=== PATIENT | female | born 1985 | race Caucasian/White ===

== ENCOUNTER 2016-09-27 17:08 | Emergency (ER) | payer OTHER ==
[~2016-09-27 17:08] MED LIST: ALBUTEROL0.09 MG/A2 IH; AMOXIL500 MG PO; ANAPROX DS550 MG PO; ANTIVERT25 MG PO; ATIVAN1 MG PO; AUGMENTIN 875 M1 TAB PO; BACTRIM DS 8001 TA1 PO; CATAFLAM50 MG PO; CIPRO500 MG PO; CIPRODEX 0.3%-7.5 ML OT; CIPROFLOXACIN500 MG PO; CLARITIN10 MG PO; COMBIVENT1 ARO IH; DICLOFENAC POTA50 MG PO; FIORICET 325 MG1 TAB PO; FLAGYL500 MG PO; FLONASE ALLERG9.9 ML NAS; FLUCONAZOLE100 MG PO; HYDROCODONE BIT1 T11 PO; KEFLEX500 MG PO; MEDROL DOSEPAK4 MG PO; METFORMIN1000 MG PO; MOTRIN800 MG PO; Motrin,Rufen800 MG PO; NEURONTIN300 MG PO; NKHM PO; NORFLEX100 MG PO; PERCOCET 325 MG1 TA2 PO; PREDNICOT10 MG PO; PREDNISONE10 MG PO; ROBAXIN750 MG PO; SUDAFED60 MG PO; TOBRADEX 0.1%-0.5 ML OPH; TOUJEO300 U/ML SC; TRAMADOL HCL50 MG PO; TRIMOX500 MG PO; ULTRAM50 MG PO; VALTREX1 GM PO; VALTREX500 MG PO; VIBRAMYCIN100 MG PO; VOLTAREN50 M1 PO; XANAX0.25 MG PO; ZANTAC150 MG PO; ZITHROMAX Z PA250 MG PO; ZOFRAN ODT4 MG SL; ZOFRAN4 MG PO
[2016-09-27 18:30] LABS: BASO # 0.1 10*3/uL (0.0-0.1); BASO % 0.5 % (0.0-1.0); EOS # 0.1 10*3/uL (0.0-0.4); EOS % 0.5 % (1.0-4.0); LYMPH # 3.6 10*3/uL (1.3-4.4); LYMPH % 33.5 % (27.0-41.0); MEAN CELL VOLUME 84.9 fl (81.0-99.0); MEAN CORPUSCULAR HGB CONC 34.1 g/dl (33.0-37.0); MEAN PLATELET VOLUME 10.9 fl (9.6-12.3); MONO # 0.5 10*3/uL (0.1-1.0); MONO % 4.9 % (3.0-9.0); NEUT # 6.5 10*3/uL (2.3-7.9); NEUT % 60.3 % (47.0-73.0); PLATELET COUNT AUTOMATED 231 10*3/uL (130-400); RED BLOOD COUNT 5.18 10*6/uL (4.10-5.10); RED CELL DISTRI WIDTH 13.2 % (0-14.5); WHITE BLOOD COUNT 10.7 10*3/uL (4.8-10.8)
[2016-09-27 18:51] LABS: ALBUMIN 3.4 gm/dl (3.1-4.5); ALKALINE PHOSPHATASE 91 U/L (45-117); BILIRUBIN, TOTAL 0.3 mg/dl (0.2-1.0); BUN 14 mg/dl (7-24); C-REACTIVE PROTEIN 0.67 MG/DL (0-0.3); CARBON DIOXIDE 22 mmol/L (21-32); CHLORIDE 103 mmol/L (98-107); CPK 62 U/L (26-192); EST GLOM FILT AFRICAN AMERICAN > 60 ml/min; GLUCOSE 288 mg/dL (65-99); MAGNESIUM 1.7 mg/dL (1.5-2.1); POTASSIUM 3.7 mmol/L (3.5-5.1); SGOT/AST 19 IU/L (3-35); SGPT/ALT 33 U/L (12-78); SODIUM 139 mmol/L (136-145); TOTAL PROTEIN 7.6 gm/dL (6.4-8.2)
[2016-09-27 18:55] LABS: FOLIC ACID 8.89 ng/mL (>5.38)
[2016-09-27 20:27] LABS: LA>2 REFLEX 2 HR DRAW NOW
[2016-09-27 20:48] LABS: LA>2 RFLX FOLLOW UP AT 2 HRS 2.7 mmol/L (0.4-2.0)
[2016-09-27 22:43] LABS: LA>2 REFLEX 4 HR DRAW NOW
[2016-11-07] MEDS ORDERED: TAMIFLU 75MG CA75 MG PO (13:42)
== END 2016-09-27 21:19 | disposition left against medical advice (07) ==
LOC: ED 17:08
PROVIDERS: Emergency Medicine
DX: M62.81 Muscle weakness (generalized) (principal); M79.604 Pain in right leg; M79.605 Pain in left leg; E11.9 Type 2 diabetes mellitus without complications; Z79.4 Long term (current) use of insulin

== ENCOUNTER 2016-11-28 09:38 | Emergency (ER) | payer OTHER ==
[~2016-11-28] VITALS: Wt 99.8 kg
[~2016-11-28 09:38] MED LIST changes: +TAMIFLU 75MG CA75 MG PO
[2016-11-28] MEDS ORDERED: AMOXICILLIN500 M2 PO (10:31)
== END 2016-11-28 10:26 | disposition home or self-care (01) ==
LOC: ED 09:38
DX: J02.9 Acute pharyngitis, unspecified (principal); J04.0 Acute laryngitis; H65.93 Unspecified nonsuppurative otitis media, bilateral; R03.0 Elevated blood-pressure reading, without diagnosis of hypertension; Z79.4 Long term (current) use of insulin

== ENCOUNTER 2016-12-16 13:48 | Emergency (ER) | payer OTHER ==
[~2016-12-16] VITALS: Wt 120.7 kg
[~2016-12-16 13:48] MED LIST changes: +AMOXICILLIN500 M2 PO
[2016-12-16 14:51] LABS: BASO % 0.5 % (0.0-1.0); EOS # 0.1 10*3/uL (0.0-0.4); EOS % 1.1 % (1.0-4.0); HEMATOCRIT 42.9 % (37.0-47.0); HEMOGLOBIN 14.9 g/dl (12.0-16.0); LYMPH # 0.9 10*3/uL (1.3-4.4); LYMPH % 10.9 % (27.0-41.0); MEAN CELL VOLUME 82.7 fl (81.0-99.0); MEAN CORPUSCULAR HGB 28.7 pg (27.0-31.0); MEAN CORPUSCULAR HGB CONC 34.7 g/dl (33.0-37.0); MONO # 0.5 10*3/uL (0.1-1.0); MONO % 6.6 % (3.0-9.0); NEUT # 6.4 10*3/uL (2.3-7.9); NEUT % 80.5 % (47.0-73.0); PLATELET COUNT AUTOMATED 232 10*3/uL (130-400); RED BLOOD COUNT 5.19 10*6/uL (4.10-5.10); RED CELL DISTRI WIDTH 13.2 % (0-14.5); WHITE BLOOD COUNT 7.9 10*3/uL (4.8-10.8)
[2016-12-16 15:05] LABS: INTERNATIONAL NORM RATIO 0.9 (2.0-3.5); PROTHROMBIN TIME 9.8 SECONDS (9.0-12.4)
[2016-12-16 15:09] LABS: ALBUMIN 3.5 gm/dl (3.1-4.5); ALKALINE PHOSPHATASE 97 U/L (45-117); BILIRUBIN, TOTAL 0.5 mg/dl (0.2-1.0); BUN 11 mg/dl (7-24); CARBON DIOXIDE 22 mmol/L (21-32); CHLORIDE 101 mmol/L (98-107); EST GLOM FILT AFRICAN AMERICAN > 60 ml/min; GLUCOSE 442 mg/dL (65-99); MAGNESIUM 1.7 mg/dL (1.5-2.1); POTASSIUM 4.2 mmol/L (3.5-5.1); SGOT/AST 22 IU/L (3-35); SGPT/ALT 31 U/L (12-78); SODIUM 139 mmol/L (136-145); TOTAL PROTEIN 7.5 gm/dL (6.4-8.2)
[2016-12-16 15:11] LABS: TROPONIN I < 0.015 ng/ml (<0.045)
== END 2016-12-16 18:57 | disposition home or self-care (01) ==
LOC: ED 13:48
PROVIDERS: Emergency Medicine
DX: R00.2 Palpitations (principal); E11.65 Type 2 diabetes mellitus with hyperglycemia; F41.9 Anxiety disorder, unspecified

== ENCOUNTER 2017-02-08 20:13 | Emergency (ER) | payer OTHER ==
[~2017-02-08] VITALS: Ht 170.1 cm; Wt 129.7 kg
[2017-02-08] MEDS ORDERED: VALTREX1 GM PO (20:29)
[2017-02-08] MEDS ORDERED: VALTREX500 MG PO (20:40)
[2017-02-08 20:48] LABS: BILIRUBIN NEGATIVE (NEGATIVE); BLOOD 3+ (NEGATIVE); CLARITY CLEAR (CLEAR); COLOR YELLOW (YELLOW); GLUCOSE 3+ (NEGATIVE); KETONE TRACE (NEGATIVE); LEUKO ESTERASE NEGATIVE (NEGATIVE); NITRITE NEGATIVE (NEGATIVE); PROTEIN NEGATIVE (NEGATIVE); SPECIFIC GRAVITY 1.015 (1.005-1.030); UROBILINOGEN 0.2 E.U./dl (0.2-1.0)
[2017-02-08 20:57] LABS: BACTERIA TRACE; EPITHELIAL CELLS 15-20; RBC 21-30 rbc/hpf (0-2); URINE REFLEX COMMENT YES (NO); WBC 0-2 wbc/hpf (0-5)
[2017-02-08] MEDS ORDERED: IBU800 MG PO (21:04)
== END 2017-02-08 21:13 | disposition home or self-care (01) ==
LOC: ED 20:13
PROVIDERS: Student in an Organized Health Care Education/Training Program
DX: A60.04 Herpesviral vulvovaginitis (principal); E11.69 Type 2 diabetes mellitus with other specified complication

== ENCOUNTER 2017-04-11 17:34 | Emergency (ER) | payer OTHER ==
[~2017-04-11] VITALS: Wt 129.7 kg
[~2017-04-11 17:34] MED LIST changes: +IBU800 MG PO
[2017-04-11] MEDS ORDERED: NAPROSYN500 MG PO (18:45)
== END 2017-04-11 18:56 | disposition home or self-care (01) ==
LOC: ED 17:34
DX: M25.511 Pain in right shoulder (principal); E11.9 Type 2 diabetes mellitus without complications; Z79.899 Other long term (current) drug therapy

== ENCOUNTER 2017-05-02 17:51 | Emergency (ER) | payer OTHER ==
[~2017-05-02] VITALS: Ht 170.1 cm; Wt 127.9 kg
[~2017-05-02 17:51] MED LIST changes: +NAPROSYN500 MG PO
[2017-05-02] MEDS ORDERED: PENICILLIN VK500 MG PO ×2 (18:08→18:10)
[2017-05-02] MEDS ORDERED: ZOFRAN ODT4 MG SL (18:20)
== END 2017-05-02 21:26 | disposition home or self-care (01) ==
LOC: ED 17:51
DX: K04.7 Periapical abscess without sinus (principal); E11.9 Type 2 diabetes mellitus without complications; Z79.899 Other long term (current) drug therapy

== ENCOUNTER 2017-10-07 20:07 | Inpatient (IN) | payer OTHER ==
[~2017-10-07] VITALS: Ht 167.6 cm; Wt 134.4 kg
--- NOTE | ~2017-10-07 | CON ---
[place], [place] REPORT OF CONSULTATION NAME: KAREN KOWALSKI UNIT #: [id number] ROOM: 403 DOCTOR: KATHLEEN PARRISH MD BIRTHDATE: [birth year] DOS: 10/09/2017 REASON FOR CONSULTATION: Depression. HISTORY OF PRESENT ILLNESS: The patient seen, and chart reviewed. The patient is a 32-year-old white female who got admitted to the medical floor after she presents with a chest pressure on the right side of her chest. She got admitted to the medical floor for further care and stabilization and evaluation. The patient was pleasant and cooperative during the interview. She reports being depressed, down, sad and helpless for the last 1 year. She also talked about poor sleep at night and said that she has been taking [id number] medication for sleep. She also talked about anxiety, where she feels like she cannot breathe anymore. She also started having chest pain. She believes the recent admission which caused the chest pain after argument with her daughter. She said that her anxiety and this depression has been going on for the last 1 year and her biggest stress is her daughter who has been fighting with her and arguing with her all the time. Besides the argument with daughter, she was not able to identify any other specific stress in her life. She denied any symptoms of psychosis, cesar, or hypomania. The patient's was by the bedside. He feels comfortable taking her back home and did not express any safety concern for the patient or anyone else. PAST MEDICAL HISTORY: Significant for diabetes, hyperglycemia, left ventricular hypertrophy, morbid obesity, palpitation, vasovagal syncope. PAST PSYCHIATRIC HISTORY: The patient had 2 prior psychiatric hospitalizations. Denied prior suicide attempt. No suicide in the family. Denied having any gun at home. SUBSTANCE ABUSE HISTORY: The patient denied any drugs or alcohol. SOCIAL HISTORY: She was born and raised in [place], 8th grade education. She is . She has 4 kids. She lives with her . MENTAL STATUS EXAMINATION: The patient was pleasant and cooperative. Described her mood as "okay." Affect, mood congruent. Thought process goal directed. No flight of ideas, loosening of association. She denied auditory or visual hallucination. No delusion or paranoia noted. She vehemently denied any suicidal ideation, intent or plan. She also denied homicidal ideation, intent or plan. Insight and judgment fair. ASSESSMENT: 1. Depressive disorder, not otherwise specified, 2. Generalized anxiety disorder. PLAN: [place], [place] REPORT OF CONSULTATION NAME: KAREN KOWALSKI UNIT #: [id number] ROOM: [facility] DOCTOR: KATHLEEN PARRISH MD BIRTHDATE: [birth year] 1. I will start her on Zoloft 50 mg in the morning. The patient took Zoloft in the past. 2. Continue current medical care on the medical floor. 3. The patient needs a psychiatric followup appointment upon discharge. We will sign off on this patient. If there is any question or concern, please give us a call. KATHLEEN PARRISH MD CM:CONSTR:REPORT OF CONSULTATION 1202 10/09/17 1424 interface
--- NOTE | ~2017-10-07 | PR ---
[place], [place] PROGRESS NOTE NAME: KAREN KOWALSKI [facility] #: [id number] UNIT #: [id number] ROOM: 403 DOCTOR: JOCELYNE KEATING MD BIRTHDATE: [birth year] DOS: 10/09/2017 SUBJECTIVE: The patient has been admitted to the hospital with chest pain, with some shortness of breath and she is feeling perfectly normal now. She denies any chest pain. No difficulty breathing, no nausea, no vomiting. Everything she feels is good. Her CT scan of the head was normal. Her ultrasound carotid duplex scan was showing less than 50% stenosis of the bilateral internal carotid arteries, so essentially normal. Stress test was normal and myocardial perfusion test was also normal, which showed left ventricle normal size. Systolic function normal. Wall motions are normal and ejection fraction 68% and there was no evidence of any pharmacological myocardial perfusion defect. Echocardiogram was also normal. Her blood pressure today is 102/56, pulse 74, respirations 18, temperature 97.7. Her vitamin D is low at 13.3, so the patient will be given vitamin D as outpatient. Hemoglobin A1c is 11.6, which is very high. The patient advised to lose weight. Troponin level on 3 different occasions is normal. D-dimer test is normal. The patient will be discharged today. She is advised to lose weight and control her diet. She will continue taking her home medication which she has been taking, which is aspirin, insulin , magnesium oxide, Tylenol p.r.n. and she will be started on vitamin D 5000 units daily. She is counseled in detail to lose weight and she is followed by Dr. Purdy in the office next week. JOCELYNE KEATING MD CM:PNTRANS [id number] JOCELYNE KEATING MD 10/09/172017 interface
[~2017-10-07 20:07] MED LIST changes: +PENICILLIN VK500 MG PO
[2017-10-07 20:09] VITALS: BP 146/105
[2017-10-07 20:24] LABS: BASO # 0.1 10*3/uL (0.0-0.1); BASO % 0.8 % (0.0-1.0); EOS # 0.1 10*3/uL (0.0-0.4); EOS % 0.7 % (1.0-4.0); HEMATOCRIT 50.4 % (37.0-47.0); HEMOGLOBIN 17.5 g/dl (12.0-16.0); LYMPH # 4.5 10*3/uL (1.3-4.4); LYMPH % 35.9 % (27.0-41.0); MEAN CELL VOLUME 82.9 fl (81.0-99.0); MEAN CORPUSCULAR HGB 28.8 pg (27.0-31.0); MEAN CORPUSCULAR HGB CONC 34.7 g/dl (33.0-37.0); MEAN PLATELET VOLUME 10.8 fl (9.6-12.3); MONO # 0.6 10*3/uL (0.1-1.0); MONO % 4.6 % (3.0-9.0); NEUT # 7.2 10*3/uL (2.3-7.9); NEUT % 57.5 % (47.0-73.0); PLATELET COUNT AUTOMATED 281 10*3/uL (130-400); RED BLOOD COUNT 6.08 10*6/uL (4.10-5.10); RED CELL DISTRI WIDTH 13.4 % (0-14.5); WHITE BLOOD COUNT 12.5 10*3/uL (4.8-10.8)
[2017-10-07 20:34] LABS: ACT PARTIAL THROMBO TIME 21.1 SECONDS (20.8-31.5); INTERNATIONAL NORM RATIO 0.9 (2.0-3.5)
[2017-10-07 20:35] VITALS: BP 132/76
[2017-10-07 20:43] LABS: ALKALINE PHOSPHATASE 112 U/L (45-117); BUN 11 mg/dl (7-24); CHLORIDE 100 mmol/L (98-107); CREATININE 0.77 mg/dL (0.55-1.02); POTASSIUM 3.6 mmol/L (3.5-5.1); SGOT/AST 19 IU/L (3-35); SGPT/ALT 32 U/L (12-78); SODIUM 136 mmol/L (136-145); TOTAL PROTEIN 8.8 gm/dL (6.4-8.2)
[2017-10-07 20:45] LABS: TROPONIN I < 0.015 ng/ml (<0.045)
[2017-10-07 20:56] VITALS: BP 122/78
[2017-10-07 21:18] VITALS: BP 120/76
[2017-10-07 22:34] VITALS: BP 110/67
[2017-10-07 23:23] VITALS: BP 128/77
[2017-10-08] VITALS: BP 129/71
[2017-10-08 00:10] VITALS: BP 129/71
[2017-10-08 02:58] LABS: BASO # 0.1 10*3/uL (0.0-0.1); BASO % 0.8 % (0.0-1.0); EOS # 0.1 10*3/uL (0.0-0.4); EOS % 1.1 % (1.0-4.0); LYMPH # 4.5 10*3/uL (1.3-4.4); MEAN CELL VOLUME 84.4 fl (81.0-99.0); MEAN CORPUSCULAR HGB 28.9 pg (27.0-31.0); MEAN CORPUSCULAR HGB CONC 34.3 g/dl (33.0-37.0); MEAN PLATELET VOLUME 11.2 fl (9.6-12.3); MONO # 0.5 10*3/uL (0.1-1.0); MONO % 5.1 % (3.0-9.0); NEUT # 5.2 10*3/uL (2.3-7.9); NEUT % 49.4 % (47.0-73.0); PLATELET COUNT AUTOMATED 221 10*3/uL (130-400); RED BLOOD COUNT 5.08 10*6/uL (4.10-5.10); RED CELL DISTRI WIDTH 13.2 % (0-14.5); WHITE BLOOD COUNT 10.5 10*3/uL (4.8-10.8)
[2017-10-08 03:00] LABS: HEMATOCRIT 42.9 % (37.0-47.0); HEMOGLOBIN 14.7 g/dl (12.0-16.0)
[2017-10-08 03:08] LABS: ALBUMIN 3.2 gm/dl (3.1-4.5); ALKALINE PHOSPHATASE 74 U/L (45-117); BUN 14 mg/dl (7-24); CHLORIDE 103 mmol/L (98-107); CHOLESTEROL 149 mg/dL (<200); CREATININE 0.77 mg/dL (0.55-1.02); HDL CHOLESTEROL 31 mg/dl (40-60); LDL CHOLESTEROL 61 mg/dL (9-159); POTASSIUM 3.5 mmol/L (3.5-5.1); SGOT/AST 12 IU/L (3-35); SGPT/ALT 24 U/L (12-78); SODIUM 138 mmol/L (136-145); TOTAL PROTEIN 6.9 gm/dL (6.4-8.2); TRIGLYCERIDES 284 mg/dl (<150); VLDL CHOLESTEROL 57 mg/dL (6-40)
[2017-10-08 08:00] VITALS: BP 104/60
[2017-10-08] MEDS ORDERED: METFORMIN1000 MG PO (10:32)
[2017-10-08 16:00] VITALS: BP 116/64
[2017-10-08 20:00] VITALS: BP 110/62; BP 89/50
[2017-10-09] VITALS: BP 104/49
[2017-10-09 08:00] VITALS: BP 102/56
[2017-10-09] MEDS ORDERED: LEVEMIR FL100 UNIT/1 SC ×2 (09:34→09:36)
[2017-10-09] MEDS ORDERED: VITAMIN D5000 UNI1 PO (09:35)
[2017-10-09 12:00] VITALS: BP 123/72
== END 2017-10-09 13:02 | disposition home or self-care (01) | DRG 313 ==
LOC: ED 20:07 → EDHOLD 23:23 → 4E 23:23
PROVIDERS: Emergency Medicine Emergency Medical Services; Family Medicine Adult Medicine
PROC: 4A02XM4 Measurement of Cardiac Total Activity, External Approach (ICD-10-PCS; principal; 2017-10-08)
PROC: 3E073KZ Introduction of Other Diagnostic Substance into Coronary Artery, Percutaneous Approach (ICD-10-PCS; 2017-10-08)
DX: R07.89 Other chest pain (principal); E11.65 Type 2 diabetes mellitus with hyperglycemia; R65.10 Systemic inflammatory response syndrome (SIRS) of non-infectious origin without acute organ dysfunction; R56.9 Unspecified convulsions; F33.9 Major depressive disorder, recurrent, unspecified; E66.01 Morbid (severe) obesity due to excess calories; I07.1 Rheumatic tricuspid insufficiency; Z68.41 Body mass index [BMI] 40.0-44.9, adult; F45.8 Other somatoform disorders; F17.210 Nicotine dependence, cigarettes, uncomplicated; F41.1 Generalized anxiety disorder; I34.0 Nonrheumatic mitral (valve) insufficiency; D72.820 Lymphocytosis (symptomatic); E78.1 Pure hyperglyceridemia; E78.2 Mixed hyperlipidemia; Z82.49 Family history of ischemic heart disease and other diseases of the circulatory system; Z90.49 Acquired absence of other specified parts of digestive tract; Z71.6 Tobacco abuse counseling; Z79.4 Long term (current) use of insulin; Z80.0 Family history of malignant neoplasm of digestive organs; Z79.84 Long term (current) use of oral hypoglycemic drugs; Z79.899 Other long term (current) drug therapy; Z91.14 Patient's other noncompliance with medication regimen

== ENCOUNTER 2018-11-04 13:52 | Emergency (ER) | payer OTHER ==
[~2018-11-04] VITALS: Ht 167.6 cm; Wt 118.8 kg
[~2018-11-04 13:52] MED LIST changes: +LEVEMIR FL100 UNIT/1 SC; +VITAMIN D5000 UNI1 PO
== END 2018-11-04 14:35 | disposition other institution (70) ==
LOC: ED 13:52
DX: H53.142 Visual discomfort, left eye (principal); F17.210 Nicotine dependence, cigarettes, uncomplicated; Z90.49 Acquired absence of other specified parts of digestive tract; Z79.899 Other long term (current) drug therapy; Z79.4 Long term (current) use of insulin

== ENCOUNTER 2018-11-23 10:24 | Emergency (ER) | payer OTHER ==
[~2018-11-23] VITALS: Ht 167.6 cm; Wt 122.5 kg
--- NOTE | ~2018-11-23 | EKG ---
[place], [place] ELECTROCARDIOGRAM REPORT NAME: KAREN KOWALSKI UNIT #: [id number] ROOM: DOCTOR: ADRIANA DRAFT REPORT BIRTHDATE: [birth year] [facility] Test Date: 2018-11-23 Test Time: 11:05:24 Pat Name: KAREN KOWALSKI Department: ER Room: Gender: F Rail Crew Member: : 1985 Requested By: EMI WHITE Order Number: [id number] Reading MD: Fran Mccullough MD Measurements Intervals [place] Rate: 94 P: 48 IN: 150 QRS: -42 QRSD: 100 T: -1 QT: 375 QTc: 469 Interpretive Statements Sinus rhythm Left anterior fascicular block Left ventricular hypertrophy Borderline T abnormalities, inferior leads Baseline wander in lead(s) I,II,III,aVR,aVF,V2 Electronically Signed On 11-26-2018 6:59:45 PDT by Fran Mccullough MD CM:EKGRPT:ELECTROCARDIOGRAM REPORT [id number] EMI AVENDAÑO DRAFT REPORT EMI WHITE DO
[2018-11-23 11:12] LABS: BASO # 0.1 10*3/uL (0.0-0.1); BASO % 0.6 % (0.0-1.0); EOS # 0.1 10*3/uL (0.0-0.4); EOS % 1.2 % (1.0-4.0); HEMATOCRIT 47.7 % (37.0-47.0); HEMOGLOBIN 16.3 g/dl (12.0-16.0); LYMPH % 26.5 % (27.0-41.0); MEAN CELL VOLUME 86.4 fl (81.0-99.0); MEAN CORPUSCULAR HGB 29.5 pg (27.0-31.0); MEAN CORPUSCULAR HGB CONC 34.2 g/dl (33.0-37.0); MEAN PLATELET VOLUME 11.5 fl (9.6-12.3); MONO # 0.6 10*3/uL (0.1-1.0); NEUT # 7.4 10*3/uL (2.3-7.9); NEUT % 66.3 % (47.0-73.0); PLATELET COUNT AUTOMATED 228 10*3/uL (130-400); RED BLOOD COUNT 5.52 10*6/uL (4.10-5.10); RED CELL DISTRI WIDTH 13.1 % (0-14.5); WHITE BLOOD COUNT 11.1 10*3/uL (4.8-10.8)
[2018-11-23 11:22] LABS: INTERNATIONAL NORM RATIO 0.9 (2.0-3.5)
[2018-11-23 11:27] LABS: ALBUMIN 3.7 gm/dl (3.1-4.5); ALKALINE PHOSPHATASE 117 U/L (45-117); BUN 21 mg/dl (7-24); CHLORIDE 102 mmol/L (98-107); CREATININE 0.75 mg/dL (0.55-1.02); POTASSIUM 4.1 mmol/L (3.5-5.1); SGOT/AST 6 IU/L (3-35); SGPT/ALT 19 U/L (12-78); SODIUM 134 mmol/L (136-145)
[2018-11-23 11:29] LABS: B-hCG (QUALITATIVE) NEGATIVE (NEGATIVE)
[2018-11-23 11:34] LABS: TROPONIN I < 0.015 ng/ml (<0.045)
== END 2018-11-23 12:35 | disposition short-term general hospital (02) ==
LOC: ED 10:24
PROVIDERS: Internal Medicine
DX: I63.9 Cerebral infarction, unspecified (principal); E11.9 Type 2 diabetes mellitus without complications; E66.01 Morbid (severe) obesity due to excess calories; F17.210 Nicotine dependence, cigarettes, uncomplicated; Z68.42 Body mass index [BMI] 45.0-49.9, adult

== ENCOUNTER 2019-07-09 21:38 | Emergency (ER) | payer OTHER ==
[~2019-07-09] VITALS: Ht 167.6 cm; Wt 118.8 kg
[2019-07-09] MEDS ORDERED: VISTARIL50 MG PO (21:57)
[2019-07-09] MEDS ORDERED: ELIMITE 5%60 GM T (21:57)
[2019-07-09] MEDS ORDERED: PREDNISONE20 M1 PO (21:57)
== END 2019-07-09 22:20 | disposition home or self-care (01) ==
LOC: ED 21:38
DX: B86 Scabies (principal); E11.9 Type 2 diabetes mellitus without complications; F17.210 Nicotine dependence, cigarettes, uncomplicated; Z86.718 Personal history of other venous thrombosis and embolism

== ENCOUNTER 2019-08-28 12:24 | Emergency (ER) | payer OTHER ==
[~2019-08-28] VITALS: Ht 170.1 cm; Wt 117.9 kg
[~2019-08-28 12:24] MED LIST changes: +ELIMITE 5%60 GM T; +PREDNISONE20 M1 PO; +VISTARIL50 MG PO
[2019-08-28 14:06] LABS: BASO # 0.1 10*3/uL (0.0-0.1); BASO % 0.6 % (0.0-1.0); EOS # 0.2 10*3/uL (0.0-0.4); EOS % 1.9 % (1.0-4.0); HEMATOCRIT 46.4 % (37.0-47.0); HEMOGLOBIN 15.8 g/dl (12.0-16.0); LYMPH # 2.3 10*3/uL (1.3-4.4); LYMPH % 24.6 % (27.0-41.0); MEAN CORPUSCULAR HGB 28.9 pg (27.0-31.0); MEAN CORPUSCULAR HGB CONC 34.1 g/dl (33.0-37.0); MEAN PLATELET VOLUME 10.3 fl (9.6-12.3); MONO # 0.5 10*3/uL (0.1-1.0); MONO % 5.6 % (3.0-9.0); NEUT # 6.2 10*3/uL (2.3-7.9); NEUT % 67.1 % (47.0-73.0); PLATELET COUNT AUTOMATED 250 10*3/uL (130-400); RED BLOOD COUNT 5.46 10*6/uL (4.10-5.10); RED CELL DISTRI WIDTH 12.9 % (0-14.5); WHITE BLOOD COUNT 9.3 10*3/uL (4.8-10.8)
[2019-08-28 14:18] LABS: BUN 10 mg/dl (7-24); CHLORIDE 107 mmol/L (98-107); CREATININE 0.61 mg/dL (0.55-1.02); POTASSIUM 3.7 mmol/L (3.5-5.1); SODIUM 138 mmol/L (136-145)
[2019-08-28] MEDS ORDERED: KEFLEX500 M1 PO (16:03)
== END 2019-08-28 16:10 | disposition home or self-care (01) ==
LOC: ED 12:24
PROVIDERS: Family Medicine
DX: K11.20 Sialoadenitis, unspecified (principal); E11.9 Type 2 diabetes mellitus without complications; E78.2 Mixed hyperlipidemia; E66.01 Morbid (severe) obesity due to excess calories; F17.210 Nicotine dependence, cigarettes, uncomplicated; Z68.42 Body mass index [BMI] 45.0-49.9, adult; Z86.718 Personal history of other venous thrombosis and embolism; Z86.73 Personal history of transient ischemic attack (TIA), and cerebral infarction without residual deficits

== ENCOUNTER 2019-10-24 09:34 | Emergency (ER) | payer OTHER ==
[~2019-10-24] VITALS: Ht 167.6 cm; Wt 121.1 kg
[~2019-10-24 09:34] MED LIST changes: +KEFLEX500 M1 PO
[2019-10-24] MEDS ORDERED: AMOXICILLIN500 M3 PO (10:28)
== END 2019-10-24 10:37 | disposition home or self-care (01) ==
LOC: ED 09:34
DX: J02.9 Acute pharyngitis, unspecified (principal); E11.9 Type 2 diabetes mellitus without complications; F31.9 Bipolar disorder, unspecified; Z86.73 Personal history of transient ischemic attack (TIA), and cerebral infarction without residual deficits; Z79.899 Other long term (current) drug therapy; Z79.4 Long term (current) use of insulin; Z79.2 Long term (current) use of antibiotics; Z79.84 Long term (current) use of oral hypoglycemic drugs

== ENCOUNTER 2019-12-22 18:31 | Emergency (ER) | payer OTHER ==
[~2019-12-22] VITALS: Ht 167.6 cm; Wt 117.0 kg
[~2019-12-22 18:31] MED LIST changes: +AMOXICILLIN500 M3 PO
[2019-12-22] MEDS ORDERED: ATARAX,VISTARIL50 MG PO (19:25)
[2019-12-22] MEDS ORDERED: ELIMITE 5%60 GM T (19:25)
== END 2019-12-22 19:32 | disposition home or self-care (01) ==
LOC: ED 18:31
DX: B86 Scabies (principal); E11.9 Type 2 diabetes mellitus without complications; R56.9 Unspecified convulsions; F31.9 Bipolar disorder, unspecified; Z79.899 Other long term (current) drug therapy; Z79.4 Long term (current) use of insulin; Z79.2 Long term (current) use of antibiotics; Z90.49 Acquired absence of other specified parts of digestive tract

== ENCOUNTER 2020-02-27 21:27 | Emergency (ER) | payer OTHER ==
[~2020-02-27] VITALS: Ht 167.6 cm; Wt 120.2 kg
[~2020-02-27 21:27] MED LIST changes: +ATARAX,VISTARIL50 MG PO
[2020-02-27 22:33] LABS: BILIRUBIN NEGATIVE (NEGATIVE); CLARITY CLEAR (CLEAR); COLOR YELLOW (YELLOW); GLUCOSE 3+ (NEGATIVE); KETONE 1+ (NEGATIVE); SPECIFIC GRAVITY 1.005 (1.005-1.030)
[2020-02-27 22:34] LABS: BLOOD NEGATIVE (NEGATIVE); LEUKO ESTERASE NEGATIVE (NEGATIVE); NITRITE NEGATIVE (NEGATIVE); UROBILINOGEN 0.2 E.U./dl (0.2-1.0)
[2020-02-27 23:15] LABS: BASO # 0.1 10*3/uL (0.0-0.1); BASO % 0.6 % (0.0-1.0); EOS # 0.1 10*3/uL (0.0-0.4); EOS % 0.7 % (1.0-4.0); HEMATOCRIT 45.1 % (37.0-47.0); LYMPH # 3.2 10*3/uL (1.3-4.4); LYMPH % 29.6 % (27.0-41.0); MEAN CELL VOLUME 84.8 fl (81.0-99.0); MEAN CORPUSCULAR HGB 28.8 pg (27.0-31.0); MEAN CORPUSCULAR HGB CONC 33.9 g/dl (33.0-37.0); MEAN PLATELET VOLUME 10.7 fl (9.6-12.3); MONO # 0.7 10*3/uL (0.1-1.0); NEUT # 6.8 10*3/uL (2.3-7.9); NEUT % 62.6 % (47.0-73.0); PLATELET COUNT AUTOMATED 230 10*3/uL (130-400); RED BLOOD COUNT 5.32 10*6/uL (4.10-5.10); RED CELL DISTRI WIDTH 13.2 % (0-14.5); WHITE BLOOD COUNT 10.8 10*3/uL (4.8-10.8)
[2020-02-27 23:31] LABS: ALBUMIN 3.2 gm/dl (3.1-4.5); BUN 19 mg/dl (7-24); CHLORIDE 107 mmol/L (98-107); POTASSIUM 3.9 mmol/L (3.5-5.1); SGOT/AST 7 IU/L (3-35); SGPT/ALT 20 U/L (12-78); SODIUM 137 mmol/L (136-145); TOTAL PROTEIN 7.5 gm/dL (6.4-8.2)
[2020-02-27 23:33] LABS: ALKALINE PHOSPHATASE 81 U/L (45-117)
[2020-02-27] MEDS ORDERED: Motrin,Rufen800 MG PO (23:46)
[2020-02-27] MEDS ORDERED: FLUCONAZOLE100 MG PO (23:47)
== END 2020-02-28 | disposition home or self-care (01) ==
LOC: ED 21:27
PROVIDERS: Nurse Practitioner Family
DX: N76.0 Acute vaginitis (principal); E11.65 Type 2 diabetes mellitus with hyperglycemia; E78.2 Mixed hyperlipidemia; F31.9 Bipolar disorder, unspecified; Z90.49 Acquired absence of other specified parts of digestive tract; Z79.899 Other long term (current) drug therapy; Z86.73 Personal history of transient ischemic attack (TIA), and cerebral infarction without residual deficits

== ENCOUNTER 2021-05-08 18:41 | Emergency (ER) | payer OTHER ==
[~2021-05-08 18:41] MED LIST changes: +VALTREX1000 MG PO
[2021-05-08 21:35] LABS: BASO % 0.5 % (0.0-1.0); EOS # 0.1 10*3/uL (0.0-0.4); EOS % 2.2 % (1.0-4.0); HEMATOCRIT 49.8 % (37.0-47.0); LYMPH # 1.6 10*3/uL (1.3-4.4); MEAN CORPUSCULAR HGB 28.5 pg (27.0-31.0); MEAN CORPUSCULAR HGB CONC 33.5 g/dl (33.0-37.0); MEAN PLATELET VOLUME 10.9 fl (9.6-12.3); MONO # 0.6 10*3/uL (0.1-1.0); MONO % 8.7 % (3.0-9.0); NEUT % 62.6 % (47.0-73.0); PLATELET COUNT AUTOMATED 210 10*3/uL (130-400); RED BLOOD COUNT 5.86 10*6/uL (4.10-5.10); RED CELL DISTRI WIDTH 12.5 % (0-14.5); WHITE BLOOD COUNT 6.3 10*3/uL (4.8-10.8)
[2021-05-08 21:48] LABS: ALBUMIN 3.2 gm/dl (3.1-4.5); ALKALINE PHOSPHATASE 89 U/L (45-117); BUN 12 mg/dl (7-24); CHLORIDE 101 mmol/L (98-107); CREATININE 0.63 mg/dL (0.55-1.02); POTASSIUM 3.8 mmol/L (3.5-5.1); SGOT/AST 27 IU/L (3-35); SGPT/ALT 32 U/L (12-78); SODIUM 134 mmol/L (136-145); TOTAL PROTEIN 8.4 gm/dL (6.4-8.2)
[2021-05-09] MEDS ORDERED: ZOFRAN4 MG PO (00:03)
[2021-05-09] MEDS ORDERED: DECADRON6 M1 PO (00:04)
[2021-05-09 09:33] VITALS: BP 172/104
[2021-05-09 09:45] VITALS: BP 169/92
[2021-05-09 10:15] VITALS: BP 160/105
[2021-05-09 10:30] VITALS: BP 157/103
[2021-05-09 11:00] VITALS: BP 127/74
[2021-05-09 11:30] VITALS: BP 138/71
== END 2021-05-09 12:09 | disposition home or self-care (01) ==
LOC: ED 18:41
PROVIDERS: Physician Assistant
DX: U07.1 COVID-19 (principal); J12.82 Pneumonia due to coronavirus disease 2019; E11.9 Type 2 diabetes mellitus without complications; F17.210 Nicotine dependence, cigarettes, uncomplicated

== ENCOUNTER 2021-10-10 09:56 | Emergency (ER) | payer OTHER ==
[~2021-10-10 09:56] MED LIST changes: +DECADRON6 M1 PO
[2021-10-10] MEDS ORDERED: Motrin,Rufen800 MG PO (13:55)
[2021-10-10] MEDS ORDERED: CYCLOBENZAPRINE10 MG PO (13:55)
== END 2021-10-10 14:13 | disposition home or self-care (01) ==
LOC: ED 09:56
DX: S30.0XXA Contusion of lower back and pelvis, initial encounter (principal); S20.224A Contusion of middle back wall of thorax, initial encounter; S09.90XA Unspecified injury of head, initial encounter; Z90.49 Acquired absence of other specified parts of digestive tract; Z87.891 Personal history of nicotine dependence; W18.39XA Other fall on same level, initial encounter; Y93.89 Activity, other specified; Y92.89 Other specified places as the place of occurrence of the external cause; Y99.8 Other external cause status

== ENCOUNTER 2022-10-24 06:45 | Inpatient (IN) | payer OTHER ==
[~2022-10-24] VITALS: Ht 167.6 cm; Wt 109.6 kg
[~2022-10-24 06:45] MED LIST changes: +CYCLOBENZAPRINE10 MG PO
[2022-10-24] MEDS ORDERED: LISINOPRIL5 MG PO (07:09)
[2022-10-24] MEDS ORDERED: NEURONTIN300 MG PO (07:10)
[2022-10-24] MEDS ORDERED: TRAZODONE50 MG PO (07:10)
[2022-10-24 07:14] VITALS: BP 135/72; BP 142/77
[2022-10-24 07:16] LABS: BASO # 0.1 10*3/uL (0.0-0.1); BASO % 0.5 % (0.0-1.0); HEMATOCRIT 45.3 % (37.0-47.0); LYMPH # 0.6 10*3/uL (1.3-4.4); LYMPH % 3.5 % (27.0-41.0); MEAN CORPUSCULAR HGB 27.8 pg (27.0-31.0); MEAN CORPUSCULAR HGB CONC 33.6 g/dl (33.0-37.0); MEAN PLATELET VOLUME 10.8 fl (9.6-12.3); MONO # 1.1 10*3/uL (0.1-1.0); NEUT # 14.3 10*3/uL (2.3-7.9); NEUT % 88.3 % (47.0-73.0); PLATELET COUNT AUTOMATED 228 10*3/uL (130-400); RED BLOOD COUNT 5.46 10*6/uL (4.10-5.10); WHITE BLOOD COUNT 16.2 10*3/uL (4.8-10.8)
[2022-10-24 07:22] LABS: ACT PARTIAL THROMBO TIME 33.1 SECONDS (20.0-32.1); INTERNATIONAL NORM RATIO 1.1 (2.0-3.5)
[2022-10-24 07:37] LABS: ALKALINE PHOSPHATASE 98 U/L (46-116); BUN 11 mg/dl (9-23); CHLORIDE 94 mmol/L (98-107); POTASSIUM 3.4 mmol/L (3.4-5.1); SGPT/ALT 12 U/L (10-49); TOTAL PROTEIN 8.3 gm/dL (6.0-8.0)
[2022-10-24 10:19] LABS: BILIRUBIN Negative (Negative); BLOOD 2+ (Negative); CLARITY Clear (Clear); COLOR Yellow (Yellow); GLUCOSE 3+ (Negative); KETONE 4+ (Negative); LEUKO ESTERASE Negative (Negative); NITRITE Negative (Negative); SPECIFIC GRAVITY >= 1.030 (1.001-1.030); UROBILINOGEN 0.2 E.U./dl (0.0-1.0)
[2022-10-24 10:38] LABS: BACTERIA 1+; EPITHELIAL CELLS 41-50; YEAST 1+
[2022-10-24 12:01] VITALS: BP 125/84
[2022-10-24 14:55] LABS: BUN 8 mg/dl (9-23); CHLORIDE 100 mmol/L (98-107); POTASSIUM 4.1 mmol/L (3.4-5.1)
[2022-10-24 15:31] VITALS: BP 142/86
[2022-10-24 15:40] VITALS: BP 114/93
[2022-10-24] MEDS ORDERED: DULOXETINE HCL30 MG PO (15:54)
[2022-10-24 16:39] LABS: BUN 10 mg/dl (9-23); CHLORIDE 100 mmol/L (98-107); POTASSIUM 3.6 mmol/L (3.4-5.1)
[2022-10-24 20:00] VITALS: BP 148/79
[2022-10-24 20:08] LABS: ALKALINE PHOSPHATASE 93 U/L (46-116); BUN 9 mg/dl (9-23); CHLORIDE 99 mmol/L (98-107); POTASSIUM 3.2 mmol/L (3.4-5.1); SGPT/ALT 24 U/L (10-49); TOTAL PROTEIN 7.5 gm/dL (6.0-8.0)
[2022-10-25] VITALS: BP 134/68
[2022-10-25 00:47] LABS: ALKALINE PHOSPHATASE 84 U/L (46-116); BUN 10 mg/dl (9-23); CHLORIDE 103 mmol/L (98-107); POTASSIUM 3.3 mmol/L (3.4-5.1); SGPT/ALT 18 U/L (10-49); TOTAL PROTEIN 7.3 gm/dL (6.0-8.0)
[2022-10-25 04:00] VITALS: BP 137/71
[2022-10-25 07:11] LABS: BASO # 0.1 10*3/uL (0.0-0.1); BASO % 0.4 % (0.0-1.0); EOS % 0.1 % (1.0-4.0); HEMATOCRIT 38.5 % (37.0-47.0); LYMPH # 1.1 10*3/uL (1.3-4.4); LYMPH % 7.7 % (27.0-41.0); MEAN CELL VOLUME 82.6 fl (81.0-99.0); MEAN CORPUSCULAR HGB 27.5 pg (27.0-31.0); MEAN CORPUSCULAR HGB CONC 33.2 g/dl (33.0-37.0); MEAN PLATELET VOLUME 11.2 fl (9.6-12.3); MONO # 1.3 10*3/uL (0.1-1.0); MONO % 9.3 % (3.0-9.0); NEUT # 11.7 10*3/uL (2.3-7.9); NEUT % 81.9 % (47.0-73.0); PLATELET COUNT AUTOMATED 214 10*3/uL (130-400); RED BLOOD COUNT 4.66 10*6/uL (4.10-5.10); RED CELL DISTRI WIDTH 13.3 % (0-14.5); WHITE BLOOD COUNT 14.2 10*3/uL (4.8-10.8)
[2022-10-25 07:28] LABS: BUN 12 mg/dl (9-23); CHLORIDE 101 mmol/L (98-107); POTASSIUM 3.3 mmol/L (3.4-5.1)
[2022-10-25 08:00] VITALS: BP 126/84
[2022-10-25 12:00] VITALS: BP 129/90
[2022-10-25 16:00] VITALS: BP 156/72
[2022-10-25 20:00] VITALS: BP 127/72
[2022-10-26] VITALS: BP 150/89
[2022-10-26 04:00] VITALS: BP 137/83
[2022-10-26 05:18] LABS: BUN 10 mg/dl (9-23); CHLORIDE 103 mmol/L (98-107); POTASSIUM 3.4 mmol/L (3.4-5.1)
[2022-10-26 06:33] LABS: BASO % 0.4 % (0.0-1.0); EOS % 0.4 % (1.0-4.0); HEMATOCRIT 34.8 % (37.0-47.0); LYMPH # 1.8 10*3/uL (1.3-4.4); LYMPH % 18.1 % (27.0-41.0); MEAN CELL VOLUME 82.5 fl (81.0-99.0); MEAN CORPUSCULAR HGB 27.5 pg (27.0-31.0); MEAN CORPUSCULAR HGB CONC 33.3 g/dl (33.0-37.0); MEAN PLATELET VOLUME 10.9 fl (9.6-12.3); MONO # 1.2 10*3/uL (0.1-1.0); MONO % 12.3 % (3.0-9.0); NEUT # 6.9 10*3/uL (2.3-7.9); NEUT % 68.4 % (47.0-73.0); PLATELET COUNT AUTOMATED 242 10*3/uL (130-400); RED BLOOD COUNT 4.22 10*6/uL (4.10-5.10); RED CELL DISTRI WIDTH 13.6 % (0-14.5); WHITE BLOOD COUNT 10.1 10*3/uL (4.8-10.8)
[2022-10-26 08:00] VITALS: BP 119/66
[2022-10-26 12:00] VITALS: BP 95/60
[2022-10-26] MEDS ORDERED: LEVOFLOXACIN750 M2 PO (15:12)
[2022-10-26 16:00] VITALS: BP 129/78
[2022-10-26 20:00] VITALS: BP 170/88
[2022-10-27] VITALS: BP 103/55
[2022-10-27 04:00] VITALS: BP 110/56
[2022-10-27 06:17] LABS: BASO # 0.1 10*3/uL (0.0-0.1); BASO % 0.5 % (0.0-1.0); EOS # 0.1 10*3/uL (0.0-0.4); HEMATOCRIT 32.7 % (37.0-47.0); LYMPH % 32.9 % (27.0-41.0); MEAN CELL VOLUME 81.5 fl (81.0-99.0); MEAN CORPUSCULAR HGB 27.4 pg (27.0-31.0); MEAN CORPUSCULAR HGB CONC 33.6 g/dl (33.0-37.0); MEAN PLATELET VOLUME 10.4 fl (9.6-12.3); MONO % 11.1 % (3.0-9.0); NEUT % 53.8 % (47.0-73.0); PLATELET COUNT AUTOMATED 258 10*3/uL (130-400); RED BLOOD COUNT 4.01 10*6/uL (4.10-5.10); RED CELL DISTRI WIDTH 13.7 % (0-14.5); WHITE BLOOD COUNT 9.2 10*3/uL (4.8-10.8)
[2022-10-27 07:06] LABS: BUN 12 mg/dl (9-23); CHLORIDE 102 mmol/L (98-107); POTASSIUM 3.4 mmol/L (3.4-5.1)
[2022-10-27 08:00] VITALS: BP 111/82
[2022-10-27 12:00] VITALS: BP 121/75
== END 2022-10-27 13:44 | disposition short-term general hospital (02) | DRG 720 ==
LOC: ED 06:45 → EDHOLD 11:00 → ICCU 11:00
PROVIDERS: Internal Medicine; ADMIT Internal Medicine; ATTEND Internal Medicine
DX: A41.59 Other Gram-negative sepsis (principal); N39.0 Urinary tract infection, site not specified; E11.10 Type 2 diabetes mellitus with ketoacidosis without coma; E87.1 Hypo-osmolality and hyponatremia; F51.04 Psychophysiologic insomnia; F51.01 Primary insomnia; E87.6 Hypokalemia; F41.1 Generalized anxiety disorder; E78.2 Mixed hyperlipidemia; E11.42 Type 2 diabetes mellitus with diabetic polyneuropathy; G40.909 Epilepsy, unspecified, not intractable, without status epilepticus; B96.1 Klebsiella pneumoniae [K. pneumoniae] as the cause of diseases classified elsewhere; E66.01 Morbid (severe) obesity due to excess calories; F33.1 Major depressive disorder, recurrent, moderate; Z79.4 Long term (current) use of insulin; Z79.899 Other long term (current) drug therapy; Z90.49 Acquired absence of other specified parts of digestive tract; Z82.49 Family history of ischemic heart disease and other diseases of the circulatory system; Z80.0 Family history of malignant neoplasm of digestive organs; Z68.39 Body mass index [BMI] 39.0-39.9, adult

== ENCOUNTER 2024-10-19 14:13 | Inpatient (IN) | payer OTHER ==
[~2024-10-19] VITALS: Ht 167.6 cm; Wt 81.6 kg
[~2024-10-19 14:13] MED LIST changes: +DULOXETINE HCL30 MG PO; +LEVOFLOXACIN750 M2 PO; +LISINOPRIL5 MG PO; +OMNICEF300 MG PO; +TRAZODONE50 MG PO
[2024-10-19 14:25] VITALS: BP 112/79
[2024-10-19] MEDS ORDERED: SODIUM CHLORIDE 0.9% 1,000 ML IV ONE ×2 (14:25)
[2024-10-19] MEDS ORDERED: Metoclopramide Hydrochloride 10 MG/2 ML VIAL IV ONE (14:25)
[2024-10-19] MEDS ORDERED: diphenhydrAMINE hydrochloride 50 MG/ML VIAL IV ONE (14:25)
[2024-10-19 14:40] LABS: BASO % 0.4 % (0.0-1.0); EOS # 0.1 10*3/uL (0.0-0.4); EOS % 1.7 % (1.0-4.0); HEMATOCRIT 41.6 % (37.0-47.0); MEAN CELL VOLUME 82.4 fl (81.0-99.0); MEAN CORPUSCULAR HGB 27.5 pg (27.0-31.0); MEAN CORPUSCULAR HGB CONC 33.4 g/dl (33.0-37.0); MEAN PLATELET VOLUME 10.6 fl (9.6-12.3); MONO # 0.5 10*3/uL (0.1-1.0); NEUT # 5.4 10*3/uL (2.3-7.9); NEUT % 67.1 % (47.0-73.0); PLATELET COUNT AUTOMATED 298 10*3/uL (130-400); RED BLOOD COUNT 5.05 10*6/uL (4.10-5.10); WHITE BLOOD COUNT 8.1 10*3/uL (4.8-10.8)
[2024-10-19 14:41] LABS: VENOUS BLOOD GAS O2 SAT 89.8 % (60.0-85.0)
[2024-10-19 15:10] LABS: BUN 9 mg/dl (9-23); CHLORIDE 99 mmol/L (98-107); POTASSIUM 3.9 mmol/L (3.4-5.1)
[2024-10-19] MEDS ORDERED: INSULIN REGULAR, HUMAN 1 UNIT/0.01 ML IV ONE (15:15)
[2024-10-19] MEDS ORDERED: MORPHINE Sulfate 2 MG/ML SYR IV ONE (15:30)
[2024-10-19] MEDS ORDERED: Ondansetron Hydrochloride 4 MG/2 ML VIAL IV ONE (15:30)
[2024-10-19] MEDS ORDERED: SODIUM CHLORIDE 0.9% 1,000 ML IV SCH ×2 (16:50→17:00)
[2024-10-19] MEDS ORDERED: DEXTROSE 10 % IN WATER 250 ML IV PRN (16:50)
[2024-10-19] MEDS ORDERED: Metoclopramide Hydrochloride 10 MG/2 ML VIAL IV SCH (16:54)
[2024-10-19] MEDS ORDERED: Albuterol Sulf/Ipratropium 3 ML VIAL NEB SCH (16:55)
[2024-10-19] MEDS ORDERED: INSULIN NPH HUM/REG INSULIN HM 1 UNIT/0.01 ML SC SCH (16:55)
[2024-10-19] MEDS ORDERED: AZITHROMYCIN 250 ML IV SCH (17:00)
[2024-10-19] MEDS ORDERED: Pantoprazole Sodium 40 MG TAB PO SCH (18:00)
[2024-10-19] MEDS ORDERED: PROTONIX40 MG PO (18:51)
[2024-10-19] MEDS ORDERED: INSULIN REGULAR, HUMAN 1 UNIT/0.01 ML SC SCH (22:00)
[2024-10-19 22:08] VITALS: BP 120/78
[2024-10-19] MEDS ORDERED: Ondansetron Hydrochloride 4 MG/2 ML VIAL IV PRN (22:45)
[2024-10-20] VITALS: BP 121/72
[2024-10-20 06:31] VITALS: BP 112/68
[2024-10-20] MEDS ORDERED: DEXTROSE 10 % IN WATER 250 ML IV PRN (08:05)
[2024-10-20 08:10] LABS: HEMATOCRIT 36.1 % (37.0-47.0); MEAN CELL VOLUME 84.7 fl (81.0-99.0); MEAN CORPUSCULAR HGB 28.2 pg (27.0-31.0); MEAN CORPUSCULAR HGB CONC 33.2 g/dl (33.0-37.0); MEAN PLATELET VOLUME 10.2 fl (9.6-12.3); PLATELET COUNT AUTOMATED 259 10*3/uL (130-400); RED BLOOD COUNT 4.26 10*6/uL (4.10-5.10); RED CELL DISTRI WIDTH 13.2 % (0-14.5); WHITE BLOOD COUNT 5.8 10*3/uL (4.8-10.8)
[2024-10-20 08:18] LABS: MANUAL DIFF REFLEX YES
[2024-10-20 08:34] LABS: ATYPICAL LYMPHS 1 % (0-0); TOTAL CELLS COUNTED 100 #CELLS
[2024-10-20 08:35] LABS: PLATELET SUFFICIENCY NORMAL (NORMAL)
[2024-10-20 09:04] LABS: BUN 7 mg/dl (9-23); CHLORIDE 106 mmol/L (98-107); POTASSIUM 4.2 mmol/L (3.4-5.1)
[2024-10-20] MEDS ORDERED: LISINOPRIL 5 MG TAB PO SCH (10:00)
[2024-10-20] MEDS ORDERED: DULoxetine Hydrochloride 30 MG CAP PO SCH (10:00)
[2024-10-20] MEDS ORDERED: DIVALPROEX (DR) 250 MG TAB PO SCH ×3 (10:00→22:00)
[2024-10-20] MEDS ORDERED: GABAPENTIN 600 MG TAB PO SCH (10:00)
[2024-10-20] MEDS ORDERED: INSULIN REGULAR, HUMAN 1 UNIT/0.01 ML SC SCH (11:30)
[2024-10-20 17:24] VITALS: BP 112/75
[2024-10-20 20:00] VITALS: BP 126/68
[2024-10-20] MEDS ORDERED: traZODone Hydrochloride 50 MG TAB PO SCH (22:00)
[2024-10-20] MEDS ORDERED: LURASIDONE HYDROCHLORIDE 20 MG TAB PO SCH (22:00)
[2024-10-20] MEDS ORDERED: Mirtazapine 15 MG TAB PO SCH (22:00)
[2024-10-21] VITALS: BP 121/72
[2024-10-21 06:04] LABS: BUN 9 mg/dl (9-23); CHLORIDE 109 mmol/L (98-107); POTASSIUM 3.3 mmol/L (3.4-5.1)
[2024-10-21 06:29] LABS: BASO # 0.1 10*3/uL (0.0-0.1); BASO % 0.8 % (0.0-1.0); EOS # 0.2 10*3/uL (0.0-0.4); EOS % 2.3 % (1.0-4.0); HEMATOCRIT 37.3 % (37.0-47.0); MEAN CELL VOLUME 85.9 fl (81.0-99.0); MEAN CORPUSCULAR HGB 28.1 pg (27.0-31.0); MEAN CORPUSCULAR HGB CONC 32.7 g/dl (33.0-37.0); MEAN PLATELET VOLUME 10.7 fl (9.6-12.3); MONO # 0.4 10*3/uL (0.1-1.0); MONO % 5.4 % (3.0-9.0); NEUT # 3.2 10*3/uL (2.3-7.9); NEUT % 39.8 % (47.0-73.0); PLATELET COUNT AUTOMATED 307 10*3/uL (130-400); RED BLOOD COUNT 4.34 10*6/uL (4.10-5.10); RED CELL DISTRI WIDTH 13.4 % (0-14.5); WHITE BLOOD COUNT 7.9 10*3/uL (4.8-10.8)
[2024-10-21 06:47] LABS: VITAMIN D, 25-HYDROXY 27.7 ng/mL (30-100)
[2024-10-21 07:22] LABS: BILIRUBIN Negative (Negative); BLOOD Trace-Lysed (Negative); CLARITY Cloudy (Clear); COLOR Yellow (Yellow); GLUCOSE Negative (Negative); KETONE Trace (Negative); LEUKO ESTERASE 3+ (Negative); NITRITE Negative (Negative); PH 6.5 (4.5-8.0); UROBILINOGEN 0.2 E.U./dl (0.0-1.0)
[2024-10-21 07:37] LABS: BACTERIA 3+; EPITHELIAL CELLS 16-20; MUCOUS TRACE; WBC 31-40 wbc/hpf (0-5)
[2024-10-21 08:00] VITALS: BP 105/45
[2024-10-21 12:00] VITALS: BP 132/69
[2024-10-21 16:00] VITALS: BP 118/68
[2024-10-21 20:00] VITALS: BP 107/64
[2024-10-22] VITALS: BP 114/66; BP 131/92
[2024-10-22 06:06] LABS: BUN 12 mg/dl (9-23); CHLORIDE 108 mmol/L (98-107); POTASSIUM 3.7 mmol/L (3.4-5.1)
[2024-10-22 06:24] LABS: BASO % 0.5 % (0.0-1.0); EOS # 0.2 10*3/uL (0.0-0.4); HEMATOCRIT 35.8 % (37.0-47.0); MEAN CELL VOLUME 84.6 fl (81.0-99.0); MEAN CORPUSCULAR HGB 27.7 pg (27.0-31.0); MEAN CORPUSCULAR HGB CONC 32.7 g/dl (33.0-37.0); MEAN PLATELET VOLUME 10.7 fl (9.6-12.3); MONO # 0.5 10*3/uL (0.1-1.0); MONO % 6.2 % (3.0-9.0); NEUT # 3.5 10*3/uL (2.3-7.9); NEUT % 44.9 % (47.0-73.0); PLATELET COUNT AUTOMATED 306 10*3/uL (130-400); RED BLOOD COUNT 4.23 10*6/uL (4.10-5.10); RED CELL DISTRI WIDTH 13.6 % (0-14.5); WHITE BLOOD COUNT 7.9 10*3/uL (4.8-10.8)
[2024-10-22 08:00] VITALS: BP 130/64
[2024-10-22] MEDS ORDERED: Albuterol Sulf/Ipratropium 3 ML VIAL NEB PRN (09:00)
[2024-10-22 12:00] VITALS: BP 116/59
[2024-10-22] MEDS ORDERED: GABAPENTIN 600 MG TAB PO SCH (14:00)
[2024-10-22] MEDS ORDERED: METOCLOPRAMIDE5 MG PO (15:23)
[2024-10-22] MEDS ORDERED: HUMULIN 70100 UNIT/1 SC (15:23)
[2024-10-22] MEDS ORDERED: DIVALPROEX SOD250 MG PO (15:23)
[2024-10-22] MEDS ORDERED: LATU20TA PO (15:23)
[2024-10-22] MEDS ORDERED: AMOX-CLAV 875-1 EACH PO (15:32)
== END 2024-10-22 15:58 | disposition home or self-care (01) | DRG 48 ==
LOC: ED 14:13 → EDHOLD 15:41 → 4E 10-20 16:02
PROVIDERS: Counselor Professional; Emergency Medicine; Internal Medicine; ADMIT Internal Medicine; ATTEND Internal Medicine
DX: E11.43 Type 2 diabetes mellitus with diabetic autonomic (poly)neuropathy (principal); F25.0 Schizoaffective disorder, bipolar type; F33.1 Major depressive disorder, recurrent, moderate; E87.0 Hyperosmolality and hypernatremia; J45.901 Unspecified asthma with (acute) exacerbation; E11.65 Type 2 diabetes mellitus with hyperglycemia; K31.84 Gastroparesis; F60.3 Borderline personality disorder; F43.10 Post-traumatic stress disorder, unspecified; N39.0 Urinary tract infection, site not specified; E87.6 Hypokalemia; F17.210 Nicotine dependence, cigarettes, uncomplicated; I10 Essential (primary) hypertension; G40.909 Epilepsy, unspecified, not intractable, without status epilepticus; M79.7 Fibromyalgia; Z86.73 Personal history of transient ischemic attack (TIA), and cerebral infarction without residual deficits; Z90.49 Acquired absence of other specified parts of digestive tract; Z82.49 Family history of ischemic heart disease and other diseases of the circulatory system; Z80.0 Family history of malignant neoplasm of digestive organs